=== PATIENT | male | born 2000 | race Caucasian/White ===

== ENCOUNTER 2022-11-29 08:37 | Day surgery (SDC) | payer BC ==
[2022-11-29] MEDS ORDERED: Ringers Lactate 1,000 ML IV ONE (09:14)
[2022-11-29 09:48] LABS: Absolute Lymphocytes (CBC) 2.1 K/uL (0.7-4.9); Hematocrit 42.9 % (39.6-49.0); Lymphocytes % 44.6 % (15.3-44.8); MCV 90.9 fL (80-100); MPV 8.1 fL (7.6-11.3); RBC Red Blood Cell Count 4.72 M/uL (4.33-5.43)
[2022-11-29 10:07] LABS: Albumin 3.8 g/dL (3.4-5.0); Bilirubin Total 0.7 mg/dL (0.2-1.0); Protein, Total 7.3 g/dL (6.4-8.2)
[2022-11-29] MEDS ORDERED: MIDAZOLAM HCL 2 MG/2 ML INJ ONE (11:45)
[2022-11-29] MEDS ORDERED: LIDOCAINE 1% MPF 5 ML VIAL ONE (11:46)
[2022-11-29] MEDS ORDERED: propofoL 200 MG/20 ML VIAL IV ONE (11:46)
[2022-11-29] MEDS ORDERED: FENTANYL CITR 100 MCG/2 ML ONE (11:46)
[2022-11-29 13:35] VITALS: O2SAT 100
[2022-11-29 13:37] VITALS: BP 96/55; TEMP 97.5
== END 2022-11-29 12:55 | disposition home or self-care (01) ==
LOC: OR 08:37
PROVIDERS: ATTEND Surgery
PROC: 0DB78ZX Excision of Stomach, Pylorus, Via Natural or Artificial Opening Endoscopic, Diagnostic (ICD-10-PCS; 2022-11-29)
PROC: 0DB98ZX Excision of Duodenum, Via Natural or Artificial Opening Endoscopic, Diagnostic (ICD-10-PCS; principal; 2022-11-29 11:15)
DX: K29.40 Chronic atrophic gastritis without bleeding (principal); K29.80 Duodenitis without bleeding; K26.7 Chronic duodenal ulcer without hemorrhage or perforation; K21.9 Gastro-esophageal reflux disease without esophagitis
CPT/HCPCS: 36415; 80053; 83605; 85025; 88305; 88312; J2001; J2250; J2704; J3010; J7120